=== PATIENT | female | born 1940 | race Caucasian/White ===

== ENCOUNTER 2018-03-19 22:05 | Emergency (ER) | payer MEDICARE, BC, OTHER ==
[2018-03-19] MEDS: NS 500 ML IV (22:59)
[2018-03-19] MEDS: ACETAMINOPHEN 325 MG TAB PO (22:59)
[2018-03-19 23:20] LABS: BASO % 0.2 % (0.0-1.0); EOS % 0.8 % (0.0-3.0); HEMATOCRIT 33.5 % (36.0-47.0); HEMOGLOBIN 11.4 g/dl (12.0-15.5); IMMATURE GRANULOCYTE % 0.9 % (0-3.0); LYMPH # 0.3 10^3/uL (1.5-4.5); LYMPH % 6.2 % (24.0-44.0); MEAN CORPUSCULAR HEMOGLOBIN 26.7 pg (27.0-33.0); MEAN CORPUSCULAR VOLUME 78.5 fl (80.0-96.0); MONO # 0.2 10^3/uL (0.0-0.8); MONO % 2.8 % (0.0-5.0); NEUTROPHILS # 4.7 10^3/uL (1.8-7.7); NEUTROPHILS % 89.1 % (36.0-66.0); PLATELET COUNT, AUTOMATED 169 10^3/uL (150-450); RED BLOOD COUNT 4.27 10^6/uL (4.00-5.40); RED CELL DISTRIBUTION WIDTH 13.4 % (11.5-14.5); WHITE BLOOD COUNT 5.3 10^3/uL (4.0-10.0)
[2018-03-19 23:28] LABS: APPEARANCE, URINE CLOUDY (CLEAR); BACTERIA, URINE AUTO 2+ (NEGATIVE); BILIRUBIN, URINE AUTO NEGATIVE (NEGATIVE); BLOOD, URINE BLOOD 2+ (NEGATIVE); COLOR, URINE YELLOW (YELLOW); GLUCOSE, URINE (UA) AUTO 3+ mg/dL (NEGATIVE); KETONE, URINE AUTO TRACE mg/dL (NEGATIVE); LEUKOCYTE ESTERASE, URINE AUTO 3+ (NEGATIVE); NITRITE, URINE AUTO POSITIVE (NEGATIVE); PROTEIN, URINE AUTO 2+ mg/dL (NEGATIVE); RBC, URINE AUTO 45 /HPF (0-3); SPECIFIC GRAVITY URINE AUTO 1.012 (1.002-1.035); SQUAMOUS EPITHELIAL CELL UR AU 1 /HPF (0-6); UROBILINOGEN, URINE AUTO 0.2 mg/dL (0.0-2.0); WBC, URINE AUTO TNTC /HPF (0-3)
[2018-03-19 23:31] LABS: ALBUMIN 3.2 GM/DL (3.2-5.2); ALBUMIN/GLOBULIN RATIO 1.07 (1.00-1.93); ALKALINE PHOSPHATASE 156 U/L (45-117); ALT/SGPT 50 U/L (12-78); ANION GAP 11 MEQ/L (8-16); AST/SGOT 17 U/L (7-37); BILIRUBIN,DIRECT 0.4 MG/DL (0.0-0.2); BILIRUBIN,TOTAL 1.1 MG/DL (0.2-1.0); BLOOD UREA NITROGEN 24 MG/DL (7-18); CALCIUM LEVEL 9.2 MG/DL (8.8-10.2); CARBON DIOXIDE LEVEL 25 MEQ/L (21-32); CHLORIDE LEVEL 98 MEQ/L (98-107); CREATININE FOR GFR 1.02 MG/DL (0.55-1.30); GLOMERULAR FILTRATION RATE 55.7 (>39); GLUCOSE, FASTING 307 MG/DL (70-100); POTASSIUM SERUM 4.5 MEQ/L (3.5-5.1); SODIUM LEVEL 134 MEQ/L (136-145); TOTAL PROTEIN 6.2 GM/DL (6.4-8.2)
[2018-03-19 23:35] LABS: LACTIC ACID SEPSIS PROTOCOL 2.6 MMOL/L (0.4-2.0)
[2018-03-20] MEDS: NS 500 ML IV (00:26)
[2018-03-20] MEDS: CIPROFLOXACIN 400 MG in APPROPRIATE DILUENT 1 EA IV (00:26)
== END 2018-03-20 01:33 | disposition home or self-care (01) ==
LOC: M ED 03-20 01:33
DX: N39.0 Urinary tract infection, site not specified (principal); R11.10 Vomiting, unspecified; E11.9 Type 2 diabetes mellitus without complications; I10 Essential (primary) hypertension; K21.9 Gastro-esophageal reflux disease without esophagitis; E03.9 Hypothyroidism, unspecified; Z88.5 Allergy status to narcotic agent; Z88.2 Allergy status to sulfonamides; Z88.8 Allergy status to other drugs, medicaments and biological substances
CPT/HCPCS: J0744

== ENCOUNTER → 2018-04-02 | Outpatient (REF) | payer MEDICARE, BC | LOC: M LAB REF 16:38 | DX: N39.0 Urinary tract infection, site not specified (principal) | CPT/HCPCS: 87186 ==

== ENCOUNTER 2018-04-07 09:29 | Emergency (ER) | payer MEDICARE, BC ==
[2018-04-07] MEDS: NS 500 ML IV (09:51)
[2018-04-07 10:03] LABS: BASO # 0.1 10^3/uL (0.0-0.2); EOS # 0.1 10^3/uL (0.0-0.50); EOS % 1.9 % (0.0-3.0); HEMATOCRIT 32.4 % (36.0-47.0); HEMOGLOBIN 10.5 g/dl (12.0-15.5); IMMATURE GRANULOCYTE % 0.2 % (0-3.0); LYMPH # 1.6 10^3/uL (1.5-4.5); LYMPH % 27.3 % (24.0-44.0); MEAN CORPUSCULAR HEMOGLOBIN 26.3 pg (27.0-33.0); MEAN CORPUSCULAR HGB CONC 32.4 g/dl (32.0-36.5); MONO # 0.5 10^3/uL (0.0-0.8); MONO % 8.9 % (0.0-5.0); NEUTROPHILS # 3.5 10^3/uL (1.8-7.7); NEUTROPHILS % 60.7 % (36.0-66.0); PLATELET COUNT, AUTOMATED 372 10^3/uL (150-450); RED CELL DISTRIBUTION WIDTH 13.6 % (11.5-14.5); WHITE BLOOD COUNT 5.8 10^3/uL (4.0-10.0)
[2018-04-07 10:18] LABS: MAGNESIUM LEVEL 1.3 MG/DL (1.8-2.4)
[2018-04-07 10:27] LABS: ANION GAP 9 MEQ/L (8-16); BLOOD UREA NITROGEN 22 MG/DL (7-18); CARBON DIOXIDE LEVEL 26 MEQ/L (21-32); CHLORIDE LEVEL 100 MEQ/L (98-107); CPK CREATINE PHOSPHOKINASE 42 U/L (26-192); CREATININE FOR GFR 1.09 MG/DL (0.55-1.30); GLOMERULAR FILTRATION RATE 51.5 (>39); GLUCOSE, FASTING 268 MG/DL (70-100); POTASSIUM SERUM 4.6 MEQ/L (3.5-5.1); SODIUM LEVEL 135 MEQ/L (136-145); TROPONIN I < 0.02 NG/ML (< 0.10)
[2018-04-07 10:32] LABS: CK-MB VALUE MASS < 1.0 NG/ML (<3.6); MB/CK RELATIVE INDEX 2.38 (< OR =4)
== END 2018-04-07 12:07 | disposition home or self-care (01) ==
LOC: M ED 09:29
DX: R55 Syncope and collapse (principal); E11.9 Type 2 diabetes mellitus without complications; K44.9 Diaphragmatic hernia without obstruction or gangrene; Z88.2 Allergy status to sulfonamides; Z88.5 Allergy status to narcotic agent; Z79.899 Other long term (current) drug therapy; Z79.82 Long term (current) use of aspirin; Z79.84 Long term (current) use of oral hypoglycemic drugs
CPT/HCPCS: 93005

== ENCOUNTER → 2018-04-11 | Outpatient (REF) | payer MEDICARE, BC | LOC: M LAB REF 16:36 | DX: N39.0 Urinary tract infection, site not specified (principal) | CPT/HCPCS: 87186 ==

== ENCOUNTER → 2018-05-16 | Outpatient (CLI) | payer MEDICARE, BC ==
[2018-05-16 17:11] LABS: BASO % 0.2 % (0.0-1.0); EOS % 0.1 % (0.0-3.0); HEMATOCRIT 35.9 % (36.0-47.0); HEMOGLOBIN 11.5 g/dl (12.0-15.5); IMMATURE GRANULOCYTE % 0.8 % (0-3.0); LYMPH # 0.7 10^3/uL (1.5-4.5); MEAN CORPUSCULAR HEMOGLOBIN 26.7 pg (27.0-33.0); MEAN CORPUSCULAR VOLUME 83.5 fl (80.0-96.0); MONO # 0.9 10^3/uL (0.0-0.8); MONO % 6.6 % (0.0-5.0); NEUTROPHILS # 11.4 10^3/uL (1.8-7.7); NEUTROPHILS % 87.3 % (36.0-66.0); PLATELET COUNT, AUTOMATED 325 10^3/uL (150-450); RED CELL DISTRIBUTION WIDTH 14.7 % (11.5-14.5); WHITE BLOOD COUNT 13.1 10^3/uL (4.0-10.0)
== END ==
LOC: M WUC 12:08
DX: R10.31 Right lower quadrant pain (principal)

== ENCOUNTER → 2018-05-16 | Outpatient (REF) | payer MEDICARE, BC | LOC: M LAB REF 17:03 | DX: R10.31 Right lower quadrant pain (principal) ==

== ENCOUNTER 2018-05-19 14:12 | Inpatient (IN) | payer MEDICARE, BC ==
[2018-05-19 15:36] LABS: BASO % 0.1 % (0.0-1.0); EOS % 0.3 % (0.0-3.0); HEMATOCRIT 35.4 % (36.0-47.0); HEMOGLOBIN 11.6 g/dl (12.0-15.5); IMMATURE GRANULOCYTE % 0.6 % (0-3.0); LYMPH # 0.4 10^3/uL (1.5-4.5); LYMPH % 3.7 % (24.0-44.0); MEAN CORPUSCULAR HEMOGLOBIN 26.4 pg (27.0-33.0); MEAN CORPUSCULAR HGB CONC 32.8 g/dl (32.0-36.5); MEAN CORPUSCULAR VOLUME 80.5 fl (80.0-96.0); MONO # 0.6 10^3/uL (0.0-0.8); MONO % 5.4 % (0.0-5.0); NEUTROPHILS # 9.8 10^3/uL (1.8-7.7); NEUTROPHILS % 89.9 % (36.0-66.0); PLATELET COUNT, AUTOMATED 234 10^3/uL (150-450); RED CELL DISTRIBUTION WIDTH 14.6 % (11.5-14.5); WHITE BLOOD COUNT 10.9 10^3/uL (4.0-10.0)
[2018-05-19] MEDS: NS 1,000 ML IV ×2 (15:40→20:48)
[2018-05-19] MEDS: ONDANSETRON 4MG/2ML VIAL (J2405) IV (15:40)
[2018-05-19] MEDS: MORPHINE 4 MG/ML 1ML VIAL/SYRINGE (J2270) IV (15:40)
[2018-05-19 15:50] LABS: KETONE, URINE AUTO RFX 1+ mg/dL (NEGATIVE); LEUKOCYTE ESTERASE UR AUTO RFX NEGATIVE (NEGATIVE); MUCUS, URINE RFX SMALL (NEGATIVE); NITRITE, URINE AUTO RFX NEGATIVE (NEGATIVE); RBC, URINE AUTO RFX 1 /HPF (0-3); SQUAM EPITHELIAL CELL UR AURFX 0 /HPF (0-6); WBC, URINE AUTO RFX 2 /HPF (0-3)
[2018-05-19 15:56] LABS: ALT/SGPT 27 U/L (12-78); ANION GAP 9 MEQ/L (8-16); AST/SGOT 7 U/L (7-37); BLOOD UREA NITROGEN 29 MG/DL (7-18); CALCIUM LEVEL 10.6 MG/DL (8.8-10.2); CARBON DIOXIDE LEVEL 27 MEQ/L (21-32); CHLORIDE LEVEL 93 MEQ/L (98-107); CREATININE FOR GFR 1.27 MG/DL (0.55-1.30); GLOMERULAR FILTRATION RATE 43.2 (>39); GLUCOSE, FASTING 325 MG/DL (70-100); POTASSIUM SERUM 4.3 MEQ/L (3.5-5.1); SODIUM LEVEL 129 MEQ/L (136-145)
[2018-05-19 15:57] LABS: ALBUMIN 2.7 GM/DL (3.2-5.2); ALBUMIN/GLOBULIN RATIO 0.56 (1.00-1.93); ALKALINE PHOSPHATASE 116 U/L (45-117); BILIRUBIN,DIRECT 0.2 MG/DL (0.0-0.2); BILIRUBIN,TOTAL 0.9 MG/DL (0.2-1.0); LIPASE 45 U/L (73-393); TOTAL PROTEIN 7.5 GM/DL (6.4-8.2)
[2018-05-19 15:57] LABS: LACTIC ACID SEPSIS PROTOCOL 1.5 MMOL/L (0.4-2.0)
[2018-05-19] MEDS ORDERED: ISOVUE-370 76% 100ML VIAL (Q9967) As Ordered (15:58)
[2018-05-19 16:21] LABS: OSMOLALITY SERUM 286 MOSM/KG (280-301)
[2018-05-19 16:32] LABS: PHOSPHORUS LEVEL 2.6 MG/DL (2.5-4.9)
[2018-05-19 16:32] LABS: ACETONE/KETONE 5.68 MG/DL (<2.81); MAGNESIUM LEVEL 1.2 MG/DL (1.8-2.4)
[2018-05-19 16:37] LABS: ESTIMATED AVERAGE GLUCOSE 200 MG/DL (60-110); HEMOGLOBIN A1c 8.6 %
[2018-05-19] MEDS: HumaLOG INSULIN (NovoLOG) PER UNIT SC (17:30)
[2018-05-19] MEDS ORDERED: GLUCOSE 4 GM CHEW TABLET PO (19:00)
[2018-05-19] MEDS ORDERED: DEXTROSE 50% 50 ML SYRINGE IV (19:00)
[2018-05-19] MEDS ORDERED: BISACODYL 10 MG SUPP PR (19:00)
[2018-05-19] MEDS ORDERED: GLUCAGON FOR INJ 1 MG VIAL (J1610) SC (19:00)
[2018-05-19] MEDS ORDERED: ONDANSETRON 4 MG TAB (S0181) PO (19:00)
[2018-05-19] MEDS: ACETAMINOPHEN 325 MG TAB PO (19:08)
[2018-05-19] MEDS: cefTRIAXone SOD 2 GM in D5W MINI-BAG PLUS 50 ML IV (19:40)
[2018-05-19] MEDS: LABETALOL 100 MG TAB PO (20:48)
[2018-05-20] MEDS: ACETAMINOPHEN TAB 650MG DOSE (2X325MG) PO ×3 (02:00→21:48)
[2018-05-20] MEDS: LEVOTHYROXINE 75MCG TABLET (0.075MG) PO (05:49)
[2018-05-20] MEDS: NS 1,000 ML IV ×3 (05:50→21:22)
[2018-05-20 06:14] LABS: HEMATOCRIT 29.5 % (36.0-47.0); HEMOGLOBIN 9.5 g/dl (12.0-15.5); MEAN CORPUSCULAR HEMOGLOBIN 26.4 pg (27.0-33.0); MEAN CORPUSCULAR HGB CONC 32.2 g/dl (32.0-36.5); MEAN CORPUSCULAR VOLUME 81.9 fl (80.0-96.0); PLATELET COUNT, AUTOMATED 125 10^3/uL (150-450); RED CELL DISTRIBUTION WIDTH 15.1 % (11.5-14.5)
[2018-05-20 06:19] LABS: ALBUMIN 1.8 GM/DL (3.2-5.2); ALBUMIN/GLOBULIN RATIO 0.47 (1.00-1.93); ALKALINE PHOSPHATASE 202 U/L (45-117); ALT/SGPT 23 U/L (12-78); ANION GAP 13 MEQ/L (8-16); AST/SGOT 12 U/L (7-37); BILIRUBIN,TOTAL 0.5 MG/DL (0.2-1.0); BLOOD UREA NITROGEN 35 MG/DL (7-18); CARBON DIOXIDE LEVEL 19 MEQ/L (21-32); CHLORIDE LEVEL 102 MEQ/L (98-107); CREATININE FOR GFR 1.85 MG/DL (0.55-1.30); GLUCOSE, FASTING 241 MG/DL (70-100); POTASSIUM SERUM 3.6 MEQ/L (3.5-5.1); SODIUM LEVEL 134 MEQ/L (136-145); TOTAL PROTEIN 5.6 GM/DL (6.4-8.2)
[2018-05-20 06:35] LABS: POSITIVE DIFF POS FLAG; POSITIVE MORPH POS FLAG
[2018-05-20 06:36] LABS: ADD MANUAL DIFFER YES; DIFF SLIDE NUMBER 90
[2018-05-20 06:42] LABS: ANISOCYTOSIS 1+; BANDS 1 % (< 11); CRENATED RBC 1+; LYMPHOCYTES 3 % (16-52); MONOCYTES 4 % (0-8); NEUTROPHILS 92 % (35-75); PLATELET ESTIMATE DECREASED (NORMAL)
[2018-05-20 06:43] LABS: POIKILOCYTOSIS 1+
[2018-05-20] MEDS: MAG SULF 1GM/100ML (MAG RUN) 1 GM in APPROPRIATE DILUENT 1 EA IV ×3 (07:49→12:03)
[2018-05-20] MEDS: HumaLOG INSULIN (NovoLOG) PER UNIT SC ×4 (07:49→18:37)
[2018-05-20] MEDS: BENAZEPRIL 20 MG TAB PO (09:31)
[2018-05-20] MEDS: ASPIRIN 81 MG ENTERIC TAB PO (09:33)
[2018-05-20] MEDS: VITAMIN D 1,000 INTERNATIONAL UNITS TABLET PO (09:33)
[2018-05-20] MEDS: FERROUS GLUCONATE 324 MG TAB PO (09:33)
[2018-05-20] MEDS: SPIRONOLACTONE 25 MG TAB PO (09:33)
[2018-05-20] MEDS: ENOXAPARIN 40 MG/0.4 ML SYRINGE (J1650) SC (09:34)
[2018-05-20] MEDS: MULTIVITAMINS/MINERALS THERAP 1 TAB PO (09:34)
[2018-05-20] MEDS: ATORVASTATIN 10 MG TAB PO (09:34)
[2018-05-20] MEDS: MAGNESIUM OXIDE 400 MG TAB (MAG-OX) PO ×4 (09:34→21:49)
[2018-05-20] MEDS: NIFEdipine 60 MG XL TAB PO (09:42)
[2018-05-20] MEDS: LABETALOL 100 MG TAB PO ×2 (09:42→21:49)
[2018-05-20 10:41] LABS: BEDSIDE GLUCOSE 265 MG/DL (83-110)
[2018-05-20] MEDS: PIPERACILLIN/TAZOBACTAM SOD 3.375 GM in D5W MINI-BAG PLUS 50 ML IV ×2 (10:47→17:05)
[2018-05-20 11:47] LABS: BEDSIDE GLUCOSE 262 MG/DL (83-110)
[2018-05-20] MEDS ORDERED: ROCURONIUM BROMIDE 50 MG/5 ML VIAL As Ordered (16:33)
[2018-05-20] MEDS ORDERED: LIDOCAINE 2% INJ 100 MG/5 ML SDV (FOR ANES.) As Ordered (16:33)
[2018-05-20] MEDS ORDERED: PROPOFOL 200 MG/20 ML VIAL As Ordered (16:33)
[2018-05-20] MEDS ORDERED: fentaNYL 100 MCG/2 ML INJECTION (J3010) As Ordered (16:34)
[2018-05-20] MEDS ORDERED: ZOSYN 3.375 GM VIAL (J2543) As Ordered (16:45)
[2018-05-20] MEDS: CONRAY-60 60% 50ML VIAL (Q9961) As Ordered (17:17)
[2018-05-20] MEDS ORDERED: SUGAMMADEX SODIUM 500 MG/5 ML VIAL (BRIDION) As Ordered (17:32)
[2018-05-20] MEDS ORDERED: ONDANSETRON 4MG/2ML VIAL (J2405) As Ordered (17:34)
[2018-05-20 17:53] LABS: BEDSIDE GLUCOSE 249 MG/DL (83-110)
[2018-05-20] MEDS ORDERED: ONDANSETRON 4MG/2ML VIAL (J2405) IV (18:00)
[2018-05-20] MEDS ORDERED: fentaNYL 100 MCG/2 ML INJECTION (J3010) IV (18:00)
[2018-05-20] MEDS ORDERED: LR 1,000 ML IV (18:00)
[2018-05-20] MEDS ORDERED: HumaLOG INSULIN (NovoLOG) PER UNIT As Ordered (18:21)
[2018-05-20] MEDS: ALBUTEROL SULFATE 2.5 MG/0.5 ML INH NEB SOLN INH (19:15)
[2018-05-20] MEDS ORDERED: ALBUTEROL SULFATE 2.5 MG/0.5 ML INH NEB SOLN As Ordered (19:17)
[2018-05-20 20:15] LABS: BEDSIDE GLUCOSE 218 MG/DL (83-110)
[2018-05-21] MEDS: PIPERACILLIN/TAZOBACTAM SOD 3.375 GM in D5W MINI-BAG PLUS 50 ML IV ×2 (02:01→09:12)
[2018-05-21] MEDS: NS 1,000 ML IV ×4 (05:27→20:35)
[2018-05-21] MEDS: LEVOTHYROXINE 75MCG TABLET (0.075MG) PO (05:53)
[2018-05-21 06:17] LABS: BEDSIDE GLUCOSE 246 MG/DL (83-110)
[2018-05-21] MEDS: HumaLOG INSULIN (NovoLOG) PER UNIT SC ×3 (07:49→17:57)
[2018-05-21] MEDS: ENOXAPARIN 40 MG/0.4 ML SYRINGE (J1650) SC (09:12)
[2018-05-21] MEDS: FERROUS GLUCONATE 324 MG TAB PO (09:13)
[2018-05-21] MEDS: MULTIVITAMINS/MINERALS THERAP 1 TAB PO (09:13)
[2018-05-21] MEDS: SPIRONOLACTONE 25 MG TAB PO (09:13)
[2018-05-21] MEDS: VITAMIN D 1,000 INTERNATIONAL UNITS TABLET PO (09:13)
[2018-05-21] MEDS: ASPIRIN 81 MG ENTERIC TAB PO (09:13)
[2018-05-21] MEDS: ATORVASTATIN 10 MG TAB PO (09:13)
[2018-05-21] MEDS: MAGNESIUM OXIDE 400 MG TAB (MAG-OX) PO ×3 (09:13→20:36)
[2018-05-21] MEDS: BENAZEPRIL 20 MG TAB PO (09:25)
[2018-05-21] MEDS: NIFEdipine 60 MG XL TAB PO (09:26)
[2018-05-21] MEDS: LABETALOL 100 MG TAB PO ×2 (09:26→20:35)
[2018-05-21 10:11] LABS: HEMATOCRIT 27.9 % (36.0-47.0); MEAN CORPUSCULAR HEMOGLOBIN 26.4 pg (27.0-33.0); MEAN CORPUSCULAR HGB CONC 32.3 g/dl (32.0-36.5); MEAN CORPUSCULAR VOLUME 81.8 fl (80.0-96.0); PLATELET COUNT, AUTOMATED 111 10^3/uL (150-450); RED BLOOD COUNT 3.41 10^6/uL (4.00-5.40); RED CELL DISTRIBUTION WIDTH 15.9 % (11.5-14.5); WHITE BLOOD COUNT 19.2 10^3/uL (4.0-10.0)
[2018-05-21 10:36] LABS: ANION GAP 10 MEQ/L (8-16); BLOOD UREA NITROGEN 58 MG/DL (7-18); CALCIUM LEVEL 8.4 MG/DL (8.8-10.2); CARBON DIOXIDE LEVEL 23 MEQ/L (21-32); CHLORIDE LEVEL 102 MEQ/L (98-107); CK-MB VALUE MASS 1.2 NG/ML (<3.6); CPK CREATINE PHOSPHOKINASE 82 U/L (26-192); CREATININE FOR GFR 2.55 MG/DL (0.55-1.30); GLOMERULAR FILTRATION RATE 19.3 (>39); GLUCOSE, FASTING 290 MG/DL (70-100); MB/CK RELATIVE INDEX 1.46 (< OR =4); POTASSIUM SERUM 3.7 MEQ/L (3.5-5.1); SODIUM LEVEL 135 MEQ/L (136-145); TROPONIN I 0.02 NG/ML (< 0.10)
[2018-05-21 11:13] LABS: MAGNESIUM LEVEL 2.7 MG/DL (1.8-2.4)
[2018-05-21] MEDS: ENOXAPARIN 30 MG/0.3 ML SYR (J1650) SC (11:21)
[2018-05-21] MEDS: MAG SULF 1GM/100ML (MAG RUN) 1 GM in APPROPRIATE DILUENT 1 EA IV (11:42)
[2018-05-21] MEDS: PERCOCET 5MG/325MG TAB PO (11:42)
[2018-05-21] MEDS: PIPERACILLIN/TAZOBACTAM SOD 2.25 GM in D5W MINI-BAG PLUS 50 ML IV ×2 (15:54→20:35)
[2018-05-21 16:47] LABS: BEDSIDE GLUCOSE 319 MG/DL (83-110)
[2018-05-21 19:22] LABS: ANION GAP 11 MEQ/L (8-16); BLOOD UREA NITROGEN 59 MG/DL (7-18); CALCIUM LEVEL 7.8 MG/DL (8.8-10.2); CARBON DIOXIDE LEVEL 23 MEQ/L (21-32); CHLORIDE LEVEL 103 MEQ/L (98-107); CREATININE FOR GFR 2.11 MG/DL (0.55-1.30); GLOMERULAR FILTRATION RATE 24.1 (>39); GLUCOSE, FASTING 316 MG/DL (70-100); MAGNESIUM LEVEL 2.7 MG/DL (1.8-2.4); POTASSIUM SERUM 3.3 MEQ/L (3.5-5.1); SODIUM LEVEL 137 MEQ/L (136-145)
[2018-05-21] MEDS: POTASSIUM CHLORIDE 10 MEQ SR TABLET PO (20:37)
[2018-05-21] MEDS: ACETAMINOPHEN TAB 650MG DOSE (2X325MG) PO (20:40)
[2018-05-21] MEDS: KCL 20MEQ IN 0.45NS 1000ML 1,000 ML IV (23:14)
[2018-05-22] MEDS: PIPERACILLIN/TAZOBACTAM SOD 2.25 GM in D5W MINI-BAG PLUS 50 ML IV (02:47)
[2018-05-22] MEDS: LEVOTHYROXINE 75MCG TABLET (0.075MG) PO (05:26)
[2018-05-22 05:57] LABS: IONIZED CALCIUM 4.7 MG/DL (4.5-5.3)
[2018-05-22 05:59] LABS: HEMATOCRIT 28.7 % (36.0-47.0); HEMOGLOBIN 9.2 g/dl (12.0-15.5); MEAN CORPUSCULAR HGB CONC 32.1 g/dl (32.0-36.5); MEAN CORPUSCULAR VOLUME 81.1 fl (80.0-96.0); PLATELET COUNT, AUTOMATED 128 10^3/uL (150-450); RED BLOOD COUNT 3.54 10^6/uL (4.00-5.40); RED CELL DISTRIBUTION WIDTH 15.9 % (11.5-14.5); WHITE BLOOD COUNT 21.2 10^3/uL (4.0-10.0)
[2018-05-22 06:01] LABS: ADD MANUAL DIFFER YES; DIFF SLIDE NUMBER 67; POSITIVE MORPH POS FLAG
[2018-05-22 06:17] LABS: ANION GAP 11 MEQ/L (8-16); BLOOD UREA NITROGEN 48 MG/DL (7-18); CALCIUM LEVEL 7.8 MG/DL (8.8-10.2); CARBON DIOXIDE LEVEL 22 MEQ/L (21-32); CHLORIDE LEVEL 105 MEQ/L (98-107); CREATININE FOR GFR 1.34 MG/DL (0.55-1.30); GLOMERULAR FILTRATION RATE 40.6 (>39); GLUCOSE, FASTING 302 MG/DL (70-100); MAGNESIUM LEVEL 2.6 MG/DL (1.8-2.4); POTASSIUM SERUM 3.7 MEQ/L (3.5-5.1); SODIUM LEVEL 138 MEQ/L (136-145)
[2018-05-22 06:29] LABS: LYMPHOCYTES 10 % (16-52); MONOCYTES 3 % (0-8); NEUTROPHILS 87 % (35-75); PLATELET ESTIMATE DECREASED (NORMAL)
[2018-05-22 06:30] LABS: ANISOCYTOSIS 1+; POIKILOCYTOSIS 1+
[2018-05-22] MEDS ORDERED: MEROPENEM INJ 500 MG in APPROPRIATE DILUENT 1 EA IV (08:00)
[2018-05-22 08:22] LABS: ERYTHROCYTE SEDIMENTATION RATE > 140 mm/hr (0-30)
[2018-05-22] MEDS: ENOXAPARIN 30 MG/0.3 ML SYR (J1650) SC (08:35)
[2018-05-22] MEDS: MEROPENEM INJ 1 GM in APPROPRIATE DILUENT 1 EA IV ×2 (08:35→20:22)
[2018-05-22] MEDS: LACTOBACILLUS ACIDOPHILUS CAP (BACID) PO ×2 (08:39→18:12)
[2018-05-22] MEDS: HumaLOG INSULIN (NovoLOG) PER UNIT SC ×3 (08:39→18:12)
[2018-05-22] MEDS: cloNIDine HCL 0.1 MG/24 HR PATCH TD (08:39)
[2018-05-22] MEDS: ATORVASTATIN 10 MG TAB PO (08:40)
[2018-05-22] MEDS: ASPIRIN 81 MG ENTERIC TAB PO (08:40)
[2018-05-22] MEDS: LABETALOL 100 MG TAB PO ×2 (08:40→20:21)
[2018-05-22] MEDS: FERROUS GLUCONATE 324 MG TAB PO (08:41)
[2018-05-22] MEDS: MULTIVITAMINS/MINERALS THERAP 1 TAB PO (08:41)
[2018-05-22] MEDS: VITAMIN D 1,000 INTERNATIONAL UNITS TABLET PO (08:41)
[2018-05-22] MEDS: NIFEdipine 60 MG XL TAB PO (08:41)
[2018-05-22 11:44] LABS: BEDSIDE GLUCOSE 280 MG/DL (83-110)
[2018-05-22 11:50] LABS: BEDSIDE GLUCOSE 345 MG/DL (83-110)
[2018-05-22 11:50] LABS: BEDSIDE GLUCOSE 310 MG/DL (83-110)
[2018-05-22 12:09] LABS: KETONE, URINE AUTO RFX TRACE mg/dL (NEGATIVE); NITRITE, URINE AUTO RFX NEGATIVE (NEGATIVE); RBC, URINE AUTO RFX 79 /HPF (0-3); SPECIFIC GRAVITY UR AUTO RFX 1.025 (1.002-1.035); SQUAM EPITHELIAL CELL UR AURFX 1 /HPF (0-6)
[2018-05-22 12:20] LABS: LEUKOCYTE ESTERASE UR AUTO RFX 3+ (NEGATIVE); WBC, URINE AUTO RFX TNTC /HPF (0-3)
[2018-05-22] MEDS: KCL 20MEQ IN 0.45NS 1000ML 1,000 ML IV (16:44)
[2018-05-22 16:47] LABS: BEDSIDE GLUCOSE 263 MG/DL (83-110)
[2018-05-22 18:56] LABS: ANION GAP 9 MEQ/L (8-16); BLOOD UREA NITROGEN 40 MG/DL (7-18); CALCIUM LEVEL 7.9 MG/DL (8.8-10.2); CARBON DIOXIDE LEVEL 23 MEQ/L (21-32); CHLORIDE LEVEL 104 MEQ/L (98-107); CREATININE FOR GFR 1.07 MG/DL (0.55-1.30); GLOMERULAR FILTRATION RATE 52.7 (>39); GLUCOSE, FASTING 261 MG/DL (70-100); SODIUM LEVEL 136 MEQ/L (136-145)
[2018-05-22 20:25] LABS: BEDSIDE GLUCOSE 259 MG/DL (83-110)
[2018-05-23] MEDS: LEVOTHYROXINE 75MCG TABLET (0.075MG) PO (05:40)
[2018-05-23 05:58] LABS: HEMATOCRIT 28.9 % (36.0-47.0); HEMOGLOBIN 9.4 g/dl (12.0-15.5); MEAN CORPUSCULAR HEMOGLOBIN 26.3 pg (27.0-33.0); MEAN CORPUSCULAR HGB CONC 32.5 g/dl (32.0-36.5); PLATELET COUNT, AUTOMATED 154 10^3/uL (150-450); RED BLOOD COUNT 3.57 10^6/uL (4.00-5.40); RED CELL DISTRIBUTION WIDTH 15.9 % (11.5-14.5); WHITE BLOOD COUNT 16.9 10^3/uL (4.0-10.0)
[2018-05-23 06:03] LABS: ADD MANUAL DIFFER YES; DIFF SLIDE NUMBER 52; POSITIVE MORPH POS FLAG
[2018-05-23 06:17] LABS: ANION GAP 8 MEQ/L (8-16); BLOOD UREA NITROGEN 28 MG/DL (7-18); CALCIUM LEVEL 8.3 MG/DL (8.8-10.2); CARBON DIOXIDE LEVEL 23 MEQ/L (21-32); CHLORIDE LEVEL 105 MEQ/L (98-107); CREATININE FOR GFR 0.83 MG/DL (0.55-1.30); GLOMERULAR FILTRATION RATE > 60.0 (>39); GLUCOSE, FASTING 229 MG/DL (70-100); MAGNESIUM LEVEL 1.7 MG/DL (1.8-2.4); POTASSIUM SERUM 4.3 MEQ/L (3.5-5.1); SODIUM LEVEL 136 MEQ/L (136-145)
[2018-05-23 06:19] LABS: EOSINOPHILS 1 % (0-5); LYMPHOCYTES 10 % (16-52); MONOCYTES 4 % (0-8); NEUTROPHILS 85 % (35-75); PLATELET ESTIMATE NORMAL (NORMAL)
[2018-05-23] MEDS: MEROPENEM INJ 1 GM in APPROPRIATE DILUENT 1 EA IV ×2 (08:20→20:59)
[2018-05-23] MEDS: ASPIRIN 81 MG ENTERIC TAB PO (08:20)
[2018-05-23] MEDS: MULTIVITAMINS/MINERALS THERAP 1 TAB PO (08:20)
[2018-05-23] MEDS: ENOXAPARIN 30 MG/0.3 ML SYR (J1650) SC (08:20)
[2018-05-23] MEDS: LACTOBACILLUS ACIDOPHILUS CAP (BACID) PO ×2 (08:20→17:42)
[2018-05-23] MEDS: VITAMIN D 1,000 INTERNATIONAL UNITS TABLET PO (08:20)
[2018-05-23] MEDS: HumaLOG INSULIN (NovoLOG) PER UNIT SC ×3 (08:20→17:42)
[2018-05-23] MEDS: ATORVASTATIN 10 MG TAB PO (08:20)
[2018-05-23] MEDS: LABETALOL 100 MG TAB PO ×2 (08:22→21:00)
[2018-05-23] MEDS: NIFEdipine 60 MG XL TAB PO (08:22)
[2018-05-23] MEDS: FERROUS GLUCONATE 324 MG TAB PO (08:23)
[2018-05-23 11:27] LABS: BEDSIDE GLUCOSE 307 MG/DL (83-110)
[2018-05-23] MEDS: MAG SULF 1GM/100ML (MAG RUN) 1 GM in APPROPRIATE DILUENT 1 EA IV (11:56)
[2018-05-23] MEDS: SPIRONOLACTONE 25 MG TAB PO (11:56)
[2018-05-23 16:23] LABS: BEDSIDE GLUCOSE 205 MG/DL (83-110)
[2018-05-23 19:59] LABS: BEDSIDE GLUCOSE 174 MG/DL (83-110)
[2018-05-23] MEDS: LEVEMIR (INSULIN DETEMIR) 1 UNITS/0.01ML SC (21:00)
[2018-05-24] MEDS: CALCIUM CARBONATE 500 MG CHEW U/D PO ×3 (01:43→20:11)
[2018-05-24] MEDS: LEVOTHYROXINE 75MCG TABLET (0.075MG) PO (05:45)
[2018-05-24] MEDS: LevoFLOXacin 750 MG TABLET PO (06:00)
[2018-05-24 06:21] LABS: BASO % 0.2 % (0.0-1.0); EOS # 0.1 10^3/uL (0.0-0.50); EOS % 0.8 % (0.0-3.0); HEMATOCRIT 31.7 % (36.0-47.0); HEMOGLOBIN 10.2 g/dl (12.0-15.5); IMMATURE GRANULOCYTE % 2.1 % (0-3.0); LYMPH # 1.7 10^3/uL (1.5-4.5); LYMPH % 13.1 % (24.0-44.0); MEAN CORPUSCULAR HEMOGLOBIN 25.8 pg (27.0-33.0); MEAN CORPUSCULAR HGB CONC 32.2 g/dl (32.0-36.5); MEAN CORPUSCULAR VOLUME 80.3 fl (80.0-96.0); MONO # 0.8 10^3/uL (0.0-0.8); MONO % 5.9 % (0.0-5.0); NEUTROPHILS % 77.9 % (36.0-66.0); PLATELET COUNT, AUTOMATED 184 10^3/uL (150-450); RED BLOOD COUNT 3.95 10^6/uL (4.00-5.40); RED CELL DISTRIBUTION WIDTH 15.9 % (11.5-14.5); WHITE BLOOD COUNT 12.8 10^3/uL (4.0-10.0)
[2018-05-24 06:34] LABS: ANION GAP 10 MEQ/L (8-16); BLOOD UREA NITROGEN 19 MG/DL (7-18); CALCIUM LEVEL 8.8 MG/DL (8.8-10.2); CARBON DIOXIDE LEVEL 25 MEQ/L (21-32); CHLORIDE LEVEL 102 MEQ/L (98-107); CREATININE FOR GFR 0.72 MG/DL (0.55-1.30); GLOMERULAR FILTRATION RATE > 60.0 (>39); GLUCOSE, FASTING 287 MG/DL (70-100); POTASSIUM SERUM 4.3 MEQ/L (3.5-5.1); SODIUM LEVEL 137 MEQ/L (136-145)
[2018-05-24] MEDS: MULTIVITAMINS/MINERALS THERAP 1 TAB PO (07:55)
[2018-05-24] MEDS: FERROUS GLUCONATE 324 MG TAB PO (07:55)
[2018-05-24] MEDS: ATORVASTATIN 10 MG TAB PO (07:55)
[2018-05-24] MEDS: MEROPENEM INJ 1 GM in APPROPRIATE DILUENT 1 EA IV (07:55)
[2018-05-24] MEDS: VITAMIN D 1,000 INTERNATIONAL UNITS TABLET PO (07:55)
[2018-05-24] MEDS: HumaLOG INSULIN (NovoLOG) PER UNIT SC ×3 (07:55→17:30)
[2018-05-24] MEDS: LACTOBACILLUS ACIDOPHILUS CAP (BACID) PO ×2 (07:55→17:30)
[2018-05-24] MEDS: LABETALOL 100 MG TAB PO ×2 (07:56→20:22)
[2018-05-24] MEDS: ASPIRIN 81 MG ENTERIC TAB PO (07:56)
[2018-05-24] MEDS: ENOXAPARIN 30 MG/0.3 ML SYR (J1650) SC (07:56)
[2018-05-24] MEDS: NIFEdipine 60 MG XL TAB PO (07:56)
[2018-05-24] MEDS: SPIRONOLACTONE 25 MG TAB PO (07:56)
[2018-05-24 11:41] LABS: BEDSIDE GLUCOSE 336 MG/DL (83-110)
[2018-05-24 16:38] LABS: BEDSIDE GLUCOSE 239 MG/DL (83-110)
[2018-05-24 20:02] LABS: BEDSIDE GLUCOSE 266 MG/DL (83-110)
[2018-05-24] MEDS: LEVEMIR (INSULIN DETEMIR) 1 UNITS/0.01ML SC (20:23)
[2018-05-25] MEDS: CALCIUM CARBONATE 500 MG CHEW U/D PO (00:27)
[2018-05-25] MEDS: LevoFLOXacin 750 MG TABLET PO (05:27)
[2018-05-25] MEDS: LEVOTHYROXINE 75MCG TABLET (0.075MG) PO (05:27)
[2018-05-25 06:16] LABS: BASO % 0.3 % (0.0-1.0); EOS # 0.2 10^3/uL (0.0-0.50); EOS % 1.5 % (0.0-3.0); HEMATOCRIT 30.8 % (36.0-47.0); HEMOGLOBIN 10.3 g/dl (12.0-15.5); LYMPH # 1.7 10^3/uL (1.5-4.5); LYMPH % 16.2 % (24.0-44.0); MEAN CORPUSCULAR HEMOGLOBIN 26.7 pg (27.0-33.0); MEAN CORPUSCULAR HGB CONC 33.4 g/dl (32.0-36.5); MEAN CORPUSCULAR VOLUME 79.8 fl (80.0-96.0); MONO # 0.9 10^3/uL (0.0-0.8); MONO % 9.1 % (0.0-5.0); NEUTROPHILS # 7.3 10^3/uL (1.8-7.7); NEUTROPHILS % 70.9 % (36.0-66.0); PLATELET COUNT, AUTOMATED 208 10^3/uL (150-450); RED BLOOD COUNT 3.86 10^6/uL (4.00-5.40); RED CELL DISTRIBUTION WIDTH 15.6 % (11.5-14.5); WHITE BLOOD COUNT 10.4 10^3/uL (4.0-10.0)
[2018-05-25 06:34] LABS: ANION GAP 9 MEQ/L (8-16); BLOOD UREA NITROGEN 18 MG/DL (7-18); CALCIUM LEVEL 9.3 MG/DL (8.8-10.2); CARBON DIOXIDE LEVEL 26 MEQ/L (21-32); CHLORIDE LEVEL 98 MEQ/L (98-107); CREATININE FOR GFR 0.62 MG/DL (0.55-1.30); GLOMERULAR FILTRATION RATE > 60.0 (>39); GLUCOSE, FASTING 275 MG/DL (70-100); POTASSIUM SERUM 4.2 MEQ/L (3.5-5.1); SODIUM LEVEL 133 MEQ/L (136-145)
[2018-05-25] MEDS: HumaLOG INSULIN (NovoLOG) PER UNIT SC (10:19)
[2018-05-25] MEDS: ENOXAPARIN 30 MG/0.3 ML SYR (J1650) SC (10:20)
[2018-05-25] MEDS: ASPIRIN 81 MG ENTERIC TAB PO (10:21)
[2018-05-25] MEDS: NIFEdipine 60 MG XL TAB PO (10:21)
[2018-05-25] MEDS: ATORVASTATIN 10 MG TAB PO (10:21)
[2018-05-25] MEDS: MULTIVITAMINS/MINERALS THERAP 1 TAB PO (10:22)
[2018-05-25] MEDS: SPIRONOLACTONE 25 MG TAB PO (10:22)
[2018-05-25] MEDS: LACTOBACILLUS ACIDOPHILUS CAP (BACID) PO (10:22)
[2018-05-25] MEDS: FERROUS GLUCONATE 324 MG TAB PO (10:22)
[2018-05-25] MEDS: VITAMIN D 1,000 INTERNATIONAL UNITS TABLET PO (10:22)
[2018-05-25] MEDS: LABETALOL 100 MG TAB PO (10:23)
[2018-05-25 14:50] LABS: BODY FLUID CULTURE Not Indicated (.); LEGIONELLA ANTIGEN URINE Negative (Negative); ORGANISM ID Not indicated. (.); SPECIMEN SOURCE Urine (.); URINE STREP PNEUMONIAE ANTIGEN Negative (Negative)
== END 2018-05-25 11:27 | disposition home or self-care (01) | DRG 693 ==
LOC: M ED 14:12 → M ED INP 18:51 → M MSPAV 21:19
PROVIDERS: Internal Medicine
PROC: 0T768DZ Dilation of Right Ureter with Intraluminal Device, Via Natural or Artificial Opening Endoscopic (ICD-10-PCS; principal; 2018-05-20 08:13)
DX: N13.1 Hydronephrosis with ureteral stricture, not elsewhere classified (principal); J18.9 Pneumonia, unspecified organism; A41.9 Sepsis, unspecified organism; E87.1 Hypo-osmolality and hyponatremia; N17.9 Acute kidney failure, unspecified; I12.9 Hypertensive chronic kidney disease with stage 1 through stage 4 chronic kidney disease, or unspecified chronic kidney disease; E78.5 Hyperlipidemia, unspecified; E03.9 Hypothyroidism, unspecified; R11.2 Nausea with vomiting, unspecified; K21.9 Gastro-esophageal reflux disease without esophagitis; N18.3 Chronic kidney disease, stage 3 (moderate); E86.0 Dehydration; E87.6 Hypokalemia; E83.41 Hypermagnesemia; T50.8X5A Adverse effect of diagnostic agents, initial encounter; B96.20 Unspecified Escherichia coli [E. coli] as the cause of diseases classified elsewhere; K44.9 Diaphragmatic hernia without obstruction or gangrene; I95.2 Hypotension due to drugs; E11.9 Type 2 diabetes mellitus without complications; D64.9 Anemia, unspecified; E87.8 Other disorders of electrolyte and fluid balance, not elsewhere classified; Z79.82 Long term (current) use of aspirin; Z79.84 Long term (current) use of oral hypoglycemic drugs; Z79.899 Other long term (current) drug therapy; Z88.2 Allergy status to sulfonamides; Z88.5 Allergy status to narcotic agent; Z88.8 Allergy status to other drugs, medicaments and biological substances; Z90.49 Acquired absence of other specified parts of digestive tract; Z90.710 Acquired absence of both cervix and uterus; T50.0X5A Adverse effect of mineralocorticoids and their antagonists, initial encounter; T44.5X5A Adverse effect of predominantly beta-adrenoreceptor agonists, initial encounter

== ENCOUNTER → 2018-06-07 | Outpatient (CLI) | payer MEDICARE, BC ==
[2018-06-07 17:29] LABS: APPEARANCE, URINE CLOUDY (CLEAR); BACTERIA, URINE AUTO 1+ (NEGATIVE); BILIRUBIN, URINE AUTO NEGATIVE (NEGATIVE); BLOOD, URINE BLOOD NEGATIVE (NEGATIVE); COLOR, URINE YELLOW (YELLOW); GLUCOSE, URINE (UA) AUTO NEGATIVE (NEGATIVE); KETONE, URINE AUTO TRACE mg/dL (NEGATIVE); LEUKOCYTE ESTERASE, URINE AUTO 2+ (NEGATIVE); NITRITE, URINE AUTO NEGATIVE (NEGATIVE); PROTEIN, URINE AUTO 1+ mg/dL (NEGATIVE); RBC, URINE AUTO 5 /HPF (0-3); SPECIFIC GRAVITY URINE AUTO 1.015 (1.002-1.035); SQUAMOUS EPITHELIAL CELL UR AU 3 /HPF (0-6); UROBILINOGEN, URINE AUTO 0.2 mg/dL (0.0-2.0); WBC, URINE AUTO 89 /HPF (0-3)
[2018-06-07 17:35] LABS: INR 0.96; PROTHROMBIN TIME 12.9 SECONDS (12.1-14.4)
[2018-06-07 17:36] LABS: HEMATOCRIT 30.8 % (36.0-47.0); HEMOGLOBIN 9.6 g/dl (12.0-15.5); MEAN CORPUSCULAR HGB CONC 31.2 g/dl (32.0-36.5); MEAN CORPUSCULAR VOLUME 83.5 fl (80.0-96.0); PARTIAL THROMBOPLASTIN TIME 48.6 SECONDS (25.4-37.6); PLATELET COUNT, AUTOMATED 298 10^3/uL (150-450); RED BLOOD COUNT 3.69 10^6/uL (4.00-5.40); RED CELL DISTRIBUTION WIDTH 15.1 % (11.5-14.5); WHITE BLOOD COUNT 7.1 10^3/uL (4.0-10.0)
[2018-06-07 18:01] LABS: ANION GAP 12 MEQ/L (8-16); BLOOD UREA NITROGEN 17 MG/DL (7-18); CALCIUM LEVEL 9.9 MG/DL (8.8-10.2); CARBON DIOXIDE LEVEL 25 MEQ/L (21-32); CHLORIDE LEVEL 101 MEQ/L (98-107); GLOMERULAR FILTRATION RATE > 60.0 (>39); GLUCOSE, FASTING 152 MG/DL (70-100); SODIUM LEVEL 138 MEQ/L (136-145)
== END ==
LOC: M WUC 13:42
DX: Z01.818 Encounter for other preprocedural examination (principal); N13.30 Unspecified hydronephrosis
CPT/HCPCS: 80048

== ENCOUNTER 2018-06-13 08:16 | Day surgery (SDC) | payer MEDICARE, BC ==
[2018-06-13] MEDS ORDERED: VANCOMYCIN 1000 MG/20 ML VIAL (J3370) As Ordered ×2 (09:01)
[2018-06-13 09:26] LABS: BEDSIDE GLUCOSE 203 MG/DL (83-110)
[2018-06-13] MEDS: VANCOMYCIN HCL 1,000 MG, VIAL MATE ADAPTER 1 EACH in D5W 250 ML IV ×2 (09:28)
[2018-06-13] MEDS: GENTAMICIN 80 MG in APPROPRIATE DILUENT 1 EA IV (10:38)
[2018-06-13] MEDS ORDERED: MIDAZOLAM INJ 2 MG/2 ML VIAL (J2250) As Ordered ×2 (10:47)
[2018-06-13] MEDS ORDERED: fentaNYL 100 MCG/2 ML INJECTION (J3010) As Ordered ×2 (10:47)
[2018-06-13] MEDS ORDERED: PROPOFOL 200 MG/20 ML VIAL As Ordered ×2 (10:47)
[2018-06-13] MEDS ORDERED: LIDOCAINE 2% INJ 100 MG/5 ML SDV (FOR ANES.) As Ordered ×2 (10:47)
[2018-06-13] MEDS ORDERED: ONDANSETRON 4MG/2ML VIAL (J2405) As Ordered ×2 (10:47)
[2018-06-13] MEDS ORDERED: dexameTHASONE 4 MG/ML 1ML VIAL (J1100) As Ordered ×2 (10:47)
[2018-06-13] MEDS ORDERED: ePHEDrine SULFATE 25 MG/5 ML(5MG/ML) SYRINGE As Ordered ×2 (10:53)
[2018-06-13] MEDS: CONRAY-60 60% 50ML VIAL (Q9961) As Ordered ×2 (10:53)
[2018-06-13] MEDS ORDERED: ONDANSETRON 4MG/2ML VIAL (J2405) IV ×2 (11:30)
[2018-06-13] MEDS ORDERED: LR 1,000 ML IV ×2 (11:30)
[2018-06-13] MEDS ORDERED: fentaNYL 100 MCG/2 ML INJECTION (J3010) IV ×2 (11:30)
[2018-06-13] MEDS ORDERED: NORCO, ANEXSIA 5/325MG TABLET (HYDROcodone/ACETAMINOPHEN) PO ×2 (11:30)
[2018-06-13] MEDS ORDERED: ACETAMINOPHEN TAB 650MG DOSE (2X325MG) PO ×2 (11:45)
== END 2018-06-13 13:00 | disposition home or self-care (01) ==
LOC: M SDC 08:16
DX: N13.30 Unspecified hydronephrosis (principal); I10 Essential (primary) hypertension; E11.9 Type 2 diabetes mellitus without complications; E03.9 Hypothyroidism, unspecified; K21.9 Gastro-esophageal reflux disease without esophagitis; Z88.2 Allergy status to sulfonamides; Z88.8 Allergy status to other drugs, medicaments and biological substances; Z79.82 Long term (current) use of aspirin; Z79.899 Other long term (current) drug therapy; Z79.84 Long term (current) use of oral hypoglycemic drugs
CPT/HCPCS: 52310

== ENCOUNTER → 2018-06-20 | Outpatient (CLI) | payer MEDICARE, BC | LOC: M RAD 10:52 | DX: N13.30 Unspecified hydronephrosis (principal); D17.5 Benign lipomatous neoplasm of intra-abdominal organs | CPT/HCPCS: 76775 ==